=== PATIENT | male | born 1980 | race Caucasian/White ===

== ENCOUNTER 2019-02-14 00:19 | Emergency (ER) | payer OTHER ==
[~2019-02-14] VITALS: Ht 182.9 cm; Wt 102.1 kg
[2019-02-14] MEDS ORDERED: IV NORMAL SALINE 1000ML BAG 1,000 ML IV ONE (01:00)
[2019-02-14 01:01] LABS: BASO # 0.1 x10^3/uL (0.0-0.2); BASO % 1 % (0-3); EOS # 0.1 x10^3/uL (0.0-0.7); EOS % 1 % (0-3); HEMATOCRIT 49.2 % (39.0-53.0); HEMOGLOBIN 17.1 g/dL (13.0-17.5); LYMPH # 7.7 x10^3/uL (1.0-4.8); LYMPH % 62 % (24-48); MEAN CORPUSCULAR HEMOGLOBIN 32 pg (25-35); MEAN CORPUSCULAR HGB CONC 35 g/dL (31-37); MEAN CORPUSCULAR VOLUME 91 fL (79-100); MONO # 1.2 x10^3/uL (0.0-1.1); MONO % 9 % (0-9); NEUT # 3.4 x10^3/uL (1.8-7.7); NEUT % 27 % (31-73); PLATELET COUNT 388 x10^3/uL (140-400); RED BLOOD COUNT 5.39 x10^6/uL (4.30-5.70); RED CELL DISTRIBUTION WIDTH 12.7 % (11.5-14.5); WHITE BLOOD COUNT 12.5 x10^3/uL (4.0-11.0)
--- NOTE | 2019-02-14 01:02 | PHYS DOC ---
Past Medical History Past Medical History: No Pertinent History Past Surgical History: No Surgical History Alcohol Use: Occasionally Drug Use: None Adult General Chief Complaint Chief Complaint: SEIZURE [facility] HPI Patient is a 38 year old male who presents with chief complaint of seizure. Witnessed tonic-clonic sitting in a chair no trauma witnessed by no previous history drink alcohol once a month no drugs no prior medical history no medications no allergies. Patient had a prolonged postictal period and was quite agitated required ketamine for the paramedics Review of Systems Review of Systems Constitutional: Denies fever or chills [] Eyes: Denies change in visual acuity, redness, or eye pain [] HENT: Denies nasal congestion or sore throat [] Respiratory: Denies cough or shortness of breath [] Cardiovascular: No additional information not addressed in HPI [] GI: Denies abdominal pain, nausea, vomiting, bloody stools or diarrhea [] : Denies dysuria or hematuria [] Musculoskeletal: Denies back pain or joint pain [] Integument: Denies rash or skin lesions [] Neurologic: Denies headache, focal weakness or sensory changes [] Endocrine: Denies polyuria or polydipsia [] All other systems were reviewed and found to be within normal limits, except as documented in this note. Current Medications Current Medications Current Medications Medications (Trade) Dose Ordered Sig/Fanta Start Time Stop Time Status Last Admin Dose Admin Lorazepam (Ativan Inj) 1 mg 1X ONCE 02/14/19 01:00 02/14/19 01:01 DC 02/14/19 01:06 1 MG Potassium Chloride (Klor-Con) 40 meq 1X ONCE 02/14/19 02:00 02/14/19 02:01 DC 02/14/19 02:06 40 MEQ Sodium Chloride 1,000 ml @ 1,000 mls/hr 1X ONCE 02/14/19 01:00 02/14/19 01:59 DC 02/14/19 01:06 1,000 MLS/HR Allergies Allergies Allergies Coded Allergies Type Severity Reaction Last Updated Verified Penicillins Allergy Unknown 02/14/19 Yes Sulfa (Sulfonamide Antibiotics) Allergy Unknown 02/14/19 Yes Physical Exam Physical Exam Constitutional: Well developed, well nourished, MILD DISTRESS HENT: Normocephalic, atraumatic, bilateral external ears normal, oropharynx moist, no oral exudates, nose normal. [] Eyes: PERRLA, EOMI, conjunctiva normal, no discharge. [] Neck: Normal range of motion, no tenderness, supple, no stridor. [] Cardiovascular: Mild tachycardia to a 6 murmur noted Lungs & Thorax: Bilateral breath sounds clear to auscultation [] Abdomen: Bowel sounds normal, soft, no tenderness, no masses, no pulsatile masses. [] Skin: Warm, dry, no erythema, no rash. [] Back: No tenderness, no CVA tenderness. [] Extremities: No tenderness, no cyanosis, no clubbing, ROM intact, no edema. [] Neurologic: Patient is able to say his name is pupils are 3 mm and reactive bilaterally does appear to have some dissociation consistent with ketamine limiting the neurologic exam at this time somewhat. re-eval: neuro alert and oriented, moving all extremities, eomi, perrla. speech normal i advised him not to drive. Current Patient Data Vital Signs Vital Signs Date Time Temp Pulse Resp B/P (MAP) Pulse Ox O2 Delivery O2 Flow Rate FiO2 02/14/19 00:40 99.5 131 16 151/95 (113) 95 99.5 hr improved to 110 Lab Values Laboratory Tests Test 02/14/19 00:25 White Blood Count 12.5 x10^3/uL (4.0-11.0) H Red Blood Count 5.39 x10^6/uL (4.30-5.70) Hemoglobin 17.1 g/dL (13.0-17.5) Hematocrit 49.2 % (39.0-53.0) Mean Corpuscular Volume 91 fL (79-100) Mean Corpuscular Hemoglobin 32 pg (25-35) Mean Corpuscular Hemoglobin Concent 35 g/dL (31-37) Red Cell Distribution Width 12.7 % (11.5-14.5) Platelet Count 388 x10^3/uL (140-400) Neutrophils (%) (Auto) 27 % (31-73) L Lymphocytes (%) (Auto) 62 % (24-48) H Monocytes (%) (Auto) 9 % (0-9) Eosinophils (%) (Auto) 1 % (0-3) Basophils (%) (Auto) 1 % (0-3) Neutrophils # (Auto) 3.4 x10^3/uL (1.8-7.7) Lymphocytes # (Auto) 7.7 x10^3/uL (1.0-4.8) H Monocytes # (Auto) 1.2 x10^3/uL (0.0-1.1) H Eosinophils # (Auto) 0.1 x10^3/uL (0.0-0.7) Basophils # (Auto) 0.1 x10^3/uL (0.0-0.2) Segmented Neutrophils % 20 % (35-66) L Lymphocytes % 53 % (24-48) H Atypical Lymphocytes % (Manual) 12 % (0-0) H Monocytes % 13 % (0-10) H Eosinophils % 1 % (0-5) Basophils % 1 % (0-3) Platelet Estimate Adequate (ADEQUATE) Sodium Level 144 mmol/L (136-145) Potassium Level 2.8 mmol/L (3.5-5.1) *L Chloride Level 101 mmol/L (98-107) Carbon Dioxide Level 20 mmol/L (21-32) L Anion Gap 23 (6-14) H Blood Urea Nitrogen 11 mg/dL (8-26) Creatinine 1.5 mg/dL (0.7-1.3) H Estimated GFR (Cockcroft-Gault) 52.7 BUN/Creatinine Ratio 7 (6-20) Glucose Level 145 mg/dL (70-99) H Calcium Level 9.7 mg/dL (8.5-10.1) Magnesium Level 2.4 mg/dL (1.8-2.4) Total Bilirubin 0.5 mg/dL (0.2-1.0) Aspartate Amino Transferase (AST) 22 U/L (15-37) Alanine Aminotransferase (ALT) 46 U/L (16-63) Alkaline Phosphatase 71 U/L (46-116) Total Protein 8.0 g/dL (6.4-8.2) Albumin 4.6 g/dL (3.4-5.0) Albumin/Globulin Ratio 1.4 (1.0-1.7) Ethyl Alcohol Level < 10 mg/dL (0-10) Laboratory Tests 02/14/19 00:25 Laboratory Tests 02/14/19 00:25 EKG EKG [] Interpretation Time: Sinus rhythm rate 108 mild sinus tachycardia and nonspecific changes laterally QRS of 96 no STEMI identified Radiology/Procedures Radiology/Procedures [] Impressions: ue. FINDINGS: No acute intracranial hemorrhage. No mass effect, midline shift or hydrocephalus. Oliver-white matter differentiation is maintained. Unremarkable scalp soft tissues. The calvarium is intact. The visualized paranasal sinuses, mastoid air cells and middle ears are normally aerated. IMPRESSION: No acute intracranial abnormality by CT. Electronically signed by: MANDEEP HIGGINS MD (02/14/2019 2:18 AM) [facility] Course & Med Decision Making Course & Med Decision Making Pertinent Labs and Imaging studies reviewed. (See chart for details) []38-year-old male with seizure first time head CT negative potassium was 2.8 not enough to cause that though. He does endorse drinking a little bit more frequently than he is used to but really it is still only about once a month so I don't think that caused it. Patient is neuro intact in the emergency room discharge to care of who is a nurse will follow-up with neurology for further evaluation and treatment. Dragon Disclaimer Dragon Disclaimer This electronic medical record was generated, in whole or in part, using a voice recognition dictation system. Departure Departure Impression: Primary Impression: Hypokalemia Additional Impression: Seizure Disposition: 01 HOME, SELF-CARE Condition: STABLE Referrals: HENNY RUELAS MD Patient Instructions: Seizure, Adult Problem Qualifiers GARIMA JIMENEZ MD Feb 14, 2019 01:02
[2019-02-14 01:19] LABS: ALBUMIN 4.6 g/dL (3.4-5.0); ALBUMIN/GLOBULIN RATIO 1.4 (1.0-1.7); CALCIUM 9.7 mg/dL (8.5-10.1); CREATININE 1.5 mg/dL (0.7-1.3); GFR 52.7; MAGNESIUM 2.4 mg/dL (1.8-2.4); TOTAL BILIRUBIN 0.5 mg/dL (0.2-1.0)
[2019-02-14 01:22] LABS: POTASSIUM 2.8 mmol/L (3.5-5.1)
[2019-02-14 01:59] LABS: % ATYL 12 % (0-0); % BASOS 1 % (0-3); % EOS 1 % (0-5); % LYMPHS 53 % (24-48); % MONOS 13 % (0-10); % SEGS 20 % (35-66)
[2019-02-14 02:00] LABS: PLT ESTIMATE ADEQUATE (ADEQUATE)
[2019-02-14] MEDS ORDERED: POTASSIUM CHLORIDE 20 MEQ TABLET.ER. PO ONE (02:00)
--- NOTE | 2019-02-14 02:21 | RAD ---
STUDY: CT head without contrast INDICATION: Seizure. COMPARISON: None. TECHNIQUE: Axial CT imaging through the head without the use of intravenous contrast. Sagittal and coronal reformats were obtained. One or more of the following individualized dose reduction techniques were utilized for this examination: 1. Automated exposure control 2. Adjustment of the mA and/or kV according to patient size 3. Use of iterative reconstruction technique. FINDINGS: No acute intracranial hemorrhage. No mass effect, midline shift or hydrocephalus. Oliver-white matter differentiation is maintained. Unremarkable scalp soft tissues. The calvarium is intact. The visualized paranasal sinuses, mastoid air cells and middle ears are normally aerated. IMPRESSION: No acute intracranial abnormality by CT. Electronically signed by: MANDEEP HIGGINS MD (02/14/2019 2:18 AM) [facility]
[2019-02-14 03:07] VITALS: BP 152/92
--- NOTE | 2019-02-14 11:17 | EKG ---
[facility] [address] [place] [address] Test Date: 2019-02-14 Test Time: 00:55:44 Pat Name: NED TATUM Department: Room: Gender: M Nurse Behavioral [facility] Care: : 1980 Requested By: GARIMA JIMENEZ Order Number: [id number] Reading MD: Measurements Intervals [place] Rate: 108 P: -144 MN: 142 QRS: 44 QRSD: 96 T: 28 QT: 328 QTc: 443 Interpretive Statements SUPRAVENTRICULAR RHYTHM INCOMPLETE RIGHT BUNDLE BRANCH BLOCK NO SPECIFIC ECG ABNORMALITIES RI6.01 No previous ECG available for comparison
== END 2019-02-14 03:00 | disposition home or self-care (01) ==
LOC: ER 00:19
DX: E87.6 Hypokalemia (principal); R56.9 Unspecified convulsions; R45.1 Restlessness and agitation; Z88.0 Allergy status to penicillin; R00.0 Tachycardia, unspecified; Z88.2 Allergy status to sulfonamides
CPT/HCPCS: 36415; 70450; 80053; 83735; 85007; 85025; 93005; 96374; 99285; G0480; J2060; J7030